=== PATIENT | female | born 1950 | race Caucasian/White ===

== ENCOUNTER 2019-01-01 09:03 | Inpatient (IN) | payer MEDICARE, OTHER ==
[2019-01-01] MEDS: DEXAMETHASONE 4 MG/ML 1 ML INJ IV (09:51)
[2019-01-01] MEDS: LACTATED RINGER'S 1,000 ML IV ×3 (10:10→19:20)
[2019-01-01] MEDS: ACETAMINOPHEN 1000MG/100ML IV 100 ML IVPB (10:10)
[2019-01-01] MEDS ORDERED: PROPOFOL 20 ML (12:05)
[2019-01-01] MEDS ORDERED: FENTAnyl 50 MCG/ML VIAL (12:05)
[2019-01-01] MEDS ORDERED: ROPIVACAINE 0.2% 20 ML VIAL (12:07)
[2019-01-01] MEDS ORDERED: ONDANSETRON 4 MG INJ (12:07)
[2019-01-01] MEDS ORDERED: METOCLOPRAMIDE 10 MG INJ (12:07)
[2019-01-01] MEDS ORDERED: MIDAZOLAM 1 MG/ML 2 ML INJ (12:08)
[2019-01-01] MEDS ORDERED: ONDANSETRON 4 MG INJ IV (12:30)
[2019-01-01] MEDS ORDERED: OXYCODONE/ACETAMINOPHEN (5/325) TAB PO ×2 (12:30)
[2019-01-01] MEDS ORDERED: LABETALOL HCL 20MG INJ IV (12:30)
[2019-01-01] MEDS ORDERED: MEPERIDINE 25 MG INJ IV (12:30)
[2019-01-01] MEDS ORDERED: HYDROmorphONE 1 MG/5 ML IV SYRINGE IV ×3 (12:30)
[2019-01-01] MEDS ORDERED: DIPHENHYDRAMINE 50 MG INJ IV (12:30)
[2019-01-01] MEDS ORDERED: hydrALAzine 20 MG INJ IV (12:30)
[2019-01-01] MEDS ORDERED: GLYCOPYRROLATE 0.4 MG INJ (12:32)
[2019-01-01] MEDS ORDERED: NEOSTIGMINE 3 MG/3 ML SYRINGE (12:32)
[2019-01-01] MEDS: BACITRACIN 50000 UNITS INJ IRR (13:24)
[2019-01-01] MEDS: POLYMYXIN B 500000 UNIT INJ (13:24)
[2019-01-01] MEDS ORDERED: EPHEDrine 25 MG/5 ML SYG (14:05)
[2019-01-01] MEDS ORDERED: oxyCODONE 5 MG TAB PO (15:00)
[2019-01-01] MEDS ORDERED: MAGNESIUM HYDROXIDE 30ML CUP PO (15:00)
[2019-01-01] MEDS: CEFAZOLIN 1 GM/50 ML (PMX) 50 ML IVPB ×2 (15:37→23:29)
[2019-01-01] MEDS: CEFAZOLIN 2 GM/50 ML (PMX) 50 ML (FOR WT < 120 KG) IVPB (18:06)
[2019-01-01] MEDS: TRANEXAMIC ACID 1,000 MG in D5W 100 ML AT INCISION X1 IVPB (18:06)
[2019-01-01] MEDS: TRANEXAMIC ACID 1,000 MG in D5W 100 ML AT CLOSURE X1 IVPB (18:07)
[2019-01-01] MEDS: oxyCODONE 5 MG TAB PO (21:46)
[2019-01-02] MEDS: oxyCODONE 5 MG TAB PO ×2 (03:33→07:17)
[2019-01-02 04:46] LABS: ADD MAN DIFF? NO
[2019-01-02 04:50] LABS: BASOPHIL # 0.1 10^3/ul (0.0-0.1); BASOPHILS % 0.4 % (0.0-2.0); EOSINOPHILS % 0.3 % (0.0-7.0); HEMATOCRIT 33.9 % (37.0-47.0); HEMOGLOBIN 11.1 g/dl (12.0-16.0); LYMPHOCYTES # 1.5 10^3/ul (0.8-2.9); MEAN CORPUSCULAR HEMOGLOBIN 31.6 pg (29.0-33.0); MEAN CORPUSCULAR HGB CONC 32.7 g/dl (32.0-37.0); MEAN CORPUSCULAR VOLUME 96.6 fl (82.0-101.0); MEAN PLATELET VOLUME 9.4 fl (7.4-10.4); MONOCYTE # 1.1 10^3/ul (0.3-0.9); MONOCYTES % 9.6 % (0.0-11.0); NEUTROPHIL # 8.7 10^3/ul (1.6-7.5); NEUTROPHILS % 76.1 % (39.0-77.0); PLATELET COUNT 244 10^3/UL (140-415); RED BLOOD COUNT 3.51 10^6/ul (4.20-5.40); RED CELL DISTRIBUTION WIDTH 12.6 % (11.5-14.5)
[2019-01-02 04:50] LABS: WHITE BLOOD COUNT 11.4 10^3/ul (4.8-10.8)
[2019-01-02 05:16] LABS: ANION GAP 7 (5-13); BLOOD UREA NITROGEN 19 mg/dl (7-20); CALCIUM 8.8 mg/dl (8.4-10.2); CARBON DIOXIDE 30 mmol/L (21-31); CHLORIDE 102 mmol/L (97-110); CREATININE 0.72 mg/dl (0.44-1.00); Estimated GFR > 60 mL/min (>60); GLUCOSE 113 mg/dl (70-220); POTASSIUM 3.9 mmol/L (3.5-5.1); SODIUM 139 mmol/L (135-144)
[2019-01-02] MEDS: CEFAZOLIN 1 GM/50 ML (PMX) 50 ML IVPB (06:18)
[2019-01-02] MEDS: ASPIRIN 81 MG TAB PO (09:24)
[2019-01-02] MEDS: oxyCODONE 15 MG TAB PO (10:00)
== END 2019-01-02 12:23 | disposition home health service (06) | DRG 483 ==
LOC: REC 09:03 → MS1 16:38
PROC: 0RRJ00Z Replacement of Right Shoulder Joint with Reverse Ball and Socket Synthetic Substitute, Open Approach (ICD-10-PCS; principal; 2019-01-01 11:00)
DX: M19.011 Primary osteoarthritis, right shoulder (principal); M75.101 Unspecified rotator cuff tear or rupture of right shoulder, not specified as traumatic; I10 Essential (primary) hypertension; E78.5 Hyperlipidemia, unspecified; E03.9 Hypothyroidism, unspecified; F32.9 Major depressive disorder, single episode, unspecified; Z90.11 Acquired absence of right breast and nipple; Z85.3 Personal history of malignant neoplasm of breast
CPT/HCPCS: 80048; 85025; 86850; 86900; 86901; 87081; 88304; 88311; 97161; 97167